=== PATIENT | male | born 1945 | race Caucasian/White ===

== ENCOUNTER 2022-02-14 23:10 | Day surgery (SDCO) | payer MEDICARE, OTHER ==
[~2022-02-14] VITALS: Ht 170.2 cm; Wt 68.0 kg
[2022-02-15 00:37] LABS: BASOPHIL 0.7 % (0-2); EOSINOPHIL 1.9 % (0-7); HCT 42.6 % (42.0-52.0); HGB 13.2 g/dl (13.2-18.0); LYMPHOCYTE 13.6 % (15-48); MCH 26.6 pg (25.0-31.0); MCV 85.7 fL (78.0-100.0); MONOCYTE 9.4 % (0-12); MPV 9.7 fL (6.0-9.5); NEUTROPHIL 74.2 % (41-80); NRBC 0; PLT 199 K/uL (150-400); RBC 4.97 M/uL (4.70-6.00); RDW 17.5 % (11.5-14.0); WBC 5.9 K/uL (4.0-10.5)
[2022-02-15 01:00] LABS: BILIRUBIN - TOTAL 0.8 mg/dL (0.2-1.0); BUN/CREAT RATIO (CALC) 16.3 RATIO; CREATININE 1.47 mg/dL (0.67-1.17); GLOBULIN (CALCULATION) 4.3 g/dL; POTASSIUM 3.3 mmol/L (3.5-5.1); TOTAL PROTEIN 8.3 g/dL (6.4-8.2)
[2022-02-15 01:44] LABS: AMPHETAMINES NEGATIVE (NEGATIVE); BARBITURATES NEGATIVE (NEGATIVE); BILIRUBIN NEGATIVE (NEGATIVE); BLOOD NEGATIVE Ery/uL (NEGATIVE); CLARITY CLEAR (CLEAR); COLOR YELLOW (YELLOW); ECSTASY (MDMA) NEGATIVE (NEGATIVE); GLUCOSE (U) 3+ mg/dL (NORMAL); LEUKOCYTES NEGATIVE Leu/uL (NEGATIVE); MARIJUANA (THC) NEGATIVE (NEGATIVE); METHADONE NEGATIVE (NEGATIVE); NITRITE NEGATIVE (NEGATIVE); OPIATES NEGATIVE (NEGATIVE); OXYCODONE NEGATIVE (NEGATIVE); PROTEIN 1+ mg/dL (NEGATIVE); SPECIFIC GRAVITY 1.025 (1.001-1.030); UROBILINOGEN 0.2 mg/dL (0.2-1.0); pH 5.5 (5.0-9.0)
[2022-02-15 01:52] LABS: BACTERIA TRACE; URINARY RBC RARE; URINARY WBC RARE
[2022-02-15 04:09] LABS: CORONAVIRUS 2019 SARS-COV-2 NEGATIVE (NEGATIVE); INFLUENZA A NAA NEGATIVE (NEGATIVE)
--- NOTE | 2022-02-15 05:45 | NUR ---
PATIENT UNABLE TO RECALL ALL THE MEDICATIONS HE TAKES. PT STATED THAT HIS DAUGHTER WAS GOING TO CALL OR BRING A LIST OF MEDICATIONS FOR HIM. WILL PASS ON TO DAY SHIFT RNBILLIE APRN AWARE.
[2022-02-15 06:28] LABS: HCT 37.4 % (42.0-52.0); HGB 11.6 g/dl (13.2-18.0); MCH 26.5 pg (25.0-31.0); MCV 85.4 fL (78.0-100.0); MPV 9.3 fL (6.0-9.5); RBC 4.38 M/uL (4.70-6.00); RDW 17.3 % (11.5-14.0)
[2022-02-15 06:51] LABS: INR 1.39 (0.9-1.2); PROTHROMBIN TIME 16.6 SECONDS (11.9-13.9)
[2022-02-15 07:42] LABS: CREATININE 1.37 mg/dL (0.67-1.17); MAGNESIUM 1.9 mg/dL (1.8-2.4); PHOSPHORUS 3.6 mg/dL (2.6-4.7); POTASSIUM 3.4 mmol/L (3.5-5.1)
--- NOTE | 2022-02-15 14:46 | NUR ---
02/16/22 Mr. Rodriguez lives at home with his spouse. He has 02 at 3 L and a portable tank. - PCP is received at [facility] in [place]. - Casemanagement is provided through [facility].
--- NOTE | 2022-02-15 17:45 | NUR ---
CHARLOTTE GRACIA IS PT'S DAUGHTER. SHE HELPS TAKE CARE OF HER FATHER AND CAN BE REACHED AT [phone].
[2022-02-16 07:05] LABS: BASOPHIL 0.5 % (0-2); EOSINOPHIL 3.3 % (0-7); HCT 39.9 % (42.0-52.0); HGB 12.3 g/dl (13.2-18.0); LYMPHOCYTE 15.7 % (15-48); MCH 26.2 pg (25.0-31.0); MCHC 30.8 g/dL (32.0-36.0); MCV 84.9 fL (78.0-100.0); MONOCYTE 10.3 % (0-12); MPV 9.6 fL (6.0-9.5); NRBC 0; PLT 193 K/uL (150-400); RDW 17.5 % (11.5-14.0); WBC 5.5 K/uL (4.0-10.5)
[2022-02-16 07:55] LABS: BUN/CREAT RATIO (CALC) 22.9 RATIO; CREATININE 1.53 mg/dL (0.67-1.17); MAGNESIUM 1.8 mg/dL (1.8-2.4); POTASSIUM 3.6 mmol/L (3.5-5.1)
[2022-02-16] MEDS ORDERED: DULERA 200 MCG8.8 GM INH (10:00)
[2022-02-16] MEDS ORDERED: BUMEX1 MG PO (10:00)
[2022-02-16] MEDS ORDERED: EZETIMIBE10 MG PO (10:00)
[2022-02-16] MEDS ORDERED: POTASSIUM CHLO10 ME1 PO (10:00)
[2022-02-16] MEDS ORDERED: LIPITOR40 MG PO (10:00)
[2022-02-16] MEDS ORDERED: ALDACTONE25 MG PO (10:00)
[2022-02-16] MEDS ORDERED: SPIRIVA RESPIMAT4 GM INH (10:00)
[2022-02-16] MEDS ORDERED: COREG 6.25MG6.25 MG PO (10:00)
[2022-02-16] MEDS ORDERED: ISOSORBIDE MONO30 MG PO (10:00)
[2022-02-16] MEDS ORDERED: TAB-A-VITE TA400 MC1 PO (10:00)
--- NOTE | 2022-02-16 10:04 | NUR ---
02/16/22 Marifer Fajardo NP, ordered HH for medication mgemt. Mr. Rodriguez agreed and did not have a preference of agencies. A referral was made to [facility].
[2022-02-16] MEDS ORDERED: ASPIRIN EC81 MG PO (10:10)
--- NOTE | 2022-02-16 11:48 | NUR ---
eze Romero RN have reviewed the data collected by the ADMINISTRATIVE OPERATIONS COORDINATOR on the shift assessment and agree with the findings. eze Romero RN have reviewed and discussed the care plan with michi fernandes LPN and made any necessary changes based on the findings of the shift assessment.
== END 2022-02-16 14:29 | disposition home health service (06) ==
LOC: FER 23:10 → FMS 02-15 03:16
PROVIDERS: Emergency Medicine; Nurse Practitioner; Nurse Practitioner Family; Psychiatry & Neurology Psychiatry; ADMIT Internal Medicine
DX: R41.82 Altered mental status, unspecified (principal); R53.1 Weakness; R25.1 Tremor, unspecified; R07.89 Other chest pain; J44.9 Chronic obstructive pulmonary disease, unspecified; J96.11 Chronic respiratory failure with hypoxia; I25.10 Atherosclerotic heart disease of native coronary artery without angina pectoris; I13.0 Hypertensive heart and chronic kidney disease with heart failure and stage 1 through stage 4 chronic kidney disease, or unspecified chronic kidney disease; E11.22 Type 2 diabetes mellitus with diabetic chronic kidney disease; N18.30 Chronic kidney disease, stage 3 unspecified; I50.20 Unspecified systolic (congestive) heart failure; I34.0 Nonrheumatic mitral (valve) insufficiency; I27.20 Pulmonary hypertension, unspecified; E78.5 Hyperlipidemia, unspecified; Z87.891 Personal history of nicotine dependence; Z20.822 Contact with and (suspected) exposure to COVID-19
CPT/HCPCS: 36415; 36600; 70450; 71045; 80048; 80053; 80061; 80305; 81001; 82140; 82803; 83036; 83605; 83735; 83880; 84100; 84145; 84484; 85025; 85610; 92507; 92523; 93005; 93880; 94010; 94640; 94762; 97162; 97166; G0378; J1650; J7030; U0002